=== PATIENT | female | born 1960 | race Caucasian/White ===

== ENCOUNTER 2018-05-24 09:02 | Outpatient (REF) | payer OTHER, SELFPAY ==
[2018-05-24 20:56] LABS: ALT 81 U/L (12-78); AST 39 U/L (15-37); Albumin 3.9 g/dL (3.4-5.0); Alkaline Phosphatase 92 U/L (46-116); Anion Gap 10.6 mmol/L (3-11); BUN 15 mg/dL (7-18); Bilirubin, Total 0.3 mg/dL (0.2-1.0); CO2 26.4 mmol/L (21.0-32.0); CREATININE 0.75 mg/dL (0.55-1.02); Calcium 9.4 mg/dL (8.5-10.1); Chloride 105 mmol/L (98-107); Cholesterol 247 mg/dL (50-200); Glucose 114 mg/dL (70-100); HDL Cholesterol 58 mg/dL (40-60); LDL CHOLESTEROL 157 mg/dL (<100); Potassium 4.4 mmol/L (3.5-5.1); Sodium 142 mmol/L (136-145); Total Protein 7.6 g/dL (6.4-8.2); Triglyceride 160 mg/dL (30-150)
== END 2018-05-24 09:22 ==
LOC: NCHCN 09:02
PROVIDERS: PCP Family Medicine; Visit Provider Family Medicine
DX: Z00.00 Encounter for general adult medical examination without abnormal findings (principal); E66.3 Overweight; Z13.220 Encounter for screening for lipoid disorders
CPT/HCPCS: 80053; 80061; 83721

== ENCOUNTER 2019-01-03 10:51 | Outpatient (REF) | payer OTHER, SELFPAY ==
--- NOTE | 2019-01-03 10:15 | SKI_PTH ---
PATIENT: Thony Delgado LOC: [facility] U#:[id number] AGE/SX: 58/F ROOM: RE01/03/[address]: Kami Gilmore : 1960 BED: DIS: 01/03/2019 SPEC #: [id number] RECD: 01/06/19 12:33 STATUS: AFIA REQ #: [id number] JEAN: 01/03/19 10:[address]: Kami Gilmore DEPT: Surgical Specimen RECD BY: Carolina Pereyra Tissues: 1 - SKIN BIOPSY(SHAVE/PUNCH) Procedures: SKIN LEVEL 4 Comments: [id number]
== END 2019-01-03 11:11 ==
LOC: NCHCN 10:51
PROVIDERS: PCP Family Medicine; Visit Provider Family Medicine
DX: C44.519 Basal cell carcinoma of skin of other part of trunk (principal)
CPT/HCPCS: 88305

== ENCOUNTER 2020-04-26 09:40 | Outpatient (REF) | payer OTHER, SELFPAY ==
[2020-04-26 21:07] LABS: ALT 74 U/L (14-59); AST 36 U/L (15-37); Alkaline Phosphatase 93 U/L (46-116); Anion Gap 8.9 mmol/L (3-11); BUN 20 mg/dL (7-18); Bilirubin, Total 0.2 mg/dL (0.2-1.0); CO2 26.1 mmol/L (21.0-32.0); CREATININE 0.67 mg/dL (0.55-1.02); Calcium 8.7 mg/dL (8.5-10.1); Calculated LDL 152 mg/dL (<100); Chloride 107 mmol/L (98-107); Cholesterol 246 mg/dL (<200); Glucose 115 mg/dL (74-106); HDL Cholesterol 44 mg/dL (40-60); Potassium 4.1 mmol/L (3.5-5.1); Sodium 142 mmol/L (136-145); Total Protein 7.4 g/dL (6.4-8.2); Triglyceride 252 mg/dL (<150)
[2020-04-26 21:33] LABS: Vitamin D 25 Total 22.3 ng/ml (30-100)
== END 2020-04-26 10:00 ==
LOC: NCHCN 09:40
PROVIDERS: PCP Family Medicine; Visit Provider Family Medicine
DX: Z00.00 Encounter for general adult medical examination without abnormal findings (principal); E55.9 Vitamin D deficiency, unspecified; R74.01 Elevation of levels of liver transaminase levels
CPT/HCPCS: 80053; 80061; 82306

== ENCOUNTER 2020-11-12 09:09 | Outpatient (REF) | payer OTHER, SELFPAY ==
[2020-11-12 14:27] LABS: ALT 92 U/L (14-59); AST 53 U/L (15-37); Albumin 3.9 g/dL (3.4-5.0); Alkaline Phosphatase 77 U/L (46-116); BUN 18 mg/dL (7-18); Bilirubin, Total 0.4 mg/dL (0.2-1.0); CREATININE 0.8 mg/dL (0.55-1.02); Calcium 8.8 mg/dL (8.5-10.1); Chloride 108 mmol/L (98-107); Glucose 121 mg/dL (74-106); Potassium 4.4 mmol/L (3.5-5.1); Sodium 143 mmol/L (136-145); Total Protein 7.3 g/dL (6.4-8.2)
[2020-11-12 14:57] LABS: Hemoglobin A1C 6.2 % (<5.7)
[2020-11-13 13:41] LABS: Vitamin D 25 Total 34.7 ng/mL (30-100)
== END 2020-11-12 09:10 | disposition home or self-care (01) ==
LOC: NCHCN 09:09
PROVIDERS: PCP Family Medicine; Visit Provider Family Medicine
DX: R73.03 Prediabetes (principal); R74.01 Elevation of levels of liver transaminase levels; E78.1 Pure hyperglyceridemia; E55.9 Vitamin D deficiency, unspecified; R03.0 Elevated blood-pressure reading, without diagnosis of hypertension; Z72.89 Other problems related to lifestyle
CPT/HCPCS: 80053; 82306; 83036

== ENCOUNTER 2020-12-09 15:37 | Outpatient (REF) | payer OTHER, SELFPAY | END 2020-12-09 15:38 | disposition home or self-care (01) | LOC: NCHCN 15:37 | PROVIDERS: PCP Family Medicine; Visit Provider Internal Medicine | DX: R30.9 Painful micturition, unspecified (principal) | CPT/HCPCS: 87077; 87086; 87186 ==

== ENCOUNTER 2023-09-04 16:58 | Outpatient (REF) | payer BC, SELFPAY ==
[2023-09-04 20:59] LABS: TSH (W/Ref FT4) 1.13 uIU/mL (0.36-3.74)
== END 2023-09-04 16:59 | disposition home or self-care (01) ==
LOC: NCHCN 16:58
PROVIDERS: PCP Family Medicine; Visit Provider Family Medicine
DX: E04.9 Nontoxic goiter, unspecified (principal)
CPT/HCPCS: 84443

== ENCOUNTER 2024-10-23 07:54 | Outpatient (REF) | payer BC, SELFPAY ==
[2024-10-23 15:15] LABS: ALT 44 U/L (14-59); AST 29 U/L (15-37); Albumin 3.9 g/dL (3.4-5.0); Alkaline Phosphatase 79 U/L (46-116); Anion Gap 9.6 mmol/L (3-11); BUN 18 mg/dL (7-18); Bilirubin, Total 0.4 mg/dL (0.2-1.0); CO2 26.4 mmol/L (21.0-32.0); CREATININE 0.7 mg/dL (0.55-1.02); Calculated LDL 66 mg/dL (<100); Chloride 103 mmol/L (98-107); Cholesterol 167 mg/dL (<200); Estimated GFR 97.72 (mL/min/1.73m2); Glucose 126 mg/dL (74-106); HDL Cholesterol 63 mg/dL (>or=50); Potassium 4.2 mmol/L (3.5-5.1); Sodium 139 mmol/L (136-145); Total Protein 7.8 g/dL (6.4-8.2); Triglyceride 190 mg/dL (<150)
== END 2024-10-23 07:55 | disposition home or self-care (01) ==
LOC: NCHCN 07:54
PROVIDERS: PCP Family Medicine; Visit Provider Family Medicine
DX: E88.810 Metabolic syndrome (principal)
CPT/HCPCS: 80053; 80061

== ENCOUNTER 2025-03-18 16:34 | Outpatient (REF) | payer BC, SELFPAY ==
[2025-03-18 21:48] LABS: Microalb ug/mg Crea 36.2 ug/mg Cr
== END 2025-03-18 16:35 | disposition home or self-care (01) ==
LOC: NCHCN 16:34
PROVIDERS: PCP Family Medicine; Visit Provider Family Medicine
DX: I10 Essential (primary) hypertension (principal)
CPT/HCPCS: 82043; 82570